=== PATIENT | female | born 1970 | race Caucasian/White ===

== ENCOUNTER → 2017-06-20 | Outpatient (CLI) | payer OTHER ==
[~2017-06-20] MED LIST: CLARITIN10 M3 PO; DULOXETINE HCL30 MG PO; FLEXERIL PO; GABAPENTIN800 MG PO; KEPPRA500 M1 PO; LAMOTRIGINE100 MG PO; MEDROL PO; OXYCODONE HCL40 MG PO; PRAVASTATIN SOD20 MG PO; TIZANIDINE HCL4 M1 PO; TOPIRAMATE50 MG PO; TRAZODONE HCL100 MG PO; ULTRAM PO
--- NOTE | ~2017-06-20 | MR32 ---
[facility] A Service [facility] RADIOLOGY TEXT RESULTS PATIENT: RADHA FITZPATRICK LOCATION: [facility] : 70 UNIT #: [id number] AGE: [address]: MARAH ELMORE (KATIE) SEX: F ORDER DR: [id number] [address] [id number] O MR#: [id number] Acc #: [id number] NAME: RADHA FITZPATRICK : 1970 SEX: F STUDY DATE/TIME: 06/20/2017 14:21 UNIT: [facility] ROOM: STUDY DESCRIPTION: MR Cervical Wo Contrast Attending Physician: Marah Elmore (Katie) Referring Physician: Marah Elmore (Katie) Ordering Physician: Physician Non-Staff Primary Care Physician: Josafat Flores M.D. MRI CENTER REPORT This report is preliminary unless electronic signature is present. EXAM Cervical MRI. COMPARISON 01/24/2015 HISTORY Worsening neck pain with limited range of motion. Pain is worse toward the left than toward the right. Neck pain for the past 8 years but worse over the past 2 years. TECHNIQUE Multiplanar imaging of the cervical spine was performed with short and long TR. FINDINGS Alignment is satisfactory. At C3-4, small uncovertebral joint osteophytes are seen with mild bilateral foraminal narrowing. This is slightly worse on the right since the previous examination. At the C5-6, level there is disc space narrowing with a broad-based posterior disc osteophyte complex that extends more to the left than to the right. Degenerative changes at this level shows significant progression since the previous exam. There is moderate central stenosis particularly to the left of midline. There is severe left foraminal narrowing and mild to moderate foraminal narrowing on the right. At the C6-7 level, there is concentric posterior disc bulging and mild disc space narrowing. There is mild to moderate left foraminal narrowing from osteophyte formation at the uncovertebral joint. The right foramen is widely patent. [facility] A Service of [facility] RADIOLOGY TEXT RESULTS PATIENT: RADHA FITZPATRICK [id number] 70 UNIT #: [id number] AGE: [address]: MARAH ELMORE (SHANELLE) SEX: F ORDER DR: There is no evidence of marrow edema or destructive bone lesion. The cord is normal in size and signal. No paraspinous masses are seen. IMPRESSION Degenerative changes throughout the cervical spine, worst at C5-6 as described above level by level. Degenerative changes at C5-6 and C6-7 have progressed significantly since the previous examination and foraminal narrowing is asymmetrically worse on the left than on the right at both of these levels. There is also more osteophytes seen at the right uncovertebral joint at C3-4 compared to the previous exam. Dictated by... Andre Roberto M.D. THIS IS AN ELECTRONICALLY VERIFIED REPORT Andre Roberto M.D. at 06/21/2017 4:13 PM JUAN A/tyson TD: 06/21/2017 11:20 JOB #: [id number] MRI CENTER REPORT Page 1 of 1
== END | disposition home or self-care (01) ==
LOC: SMRI 13:54
DX: M50.30 Other cervical disc degeneration, unspecified cervical region (principal); M47.892 Other spondylosis, cervical region; M99.81 Other biomechanical lesions of cervical region; M25.78 Osteophyte, vertebrae
CPT/HCPCS: 72141